=== PATIENT | female | born 1965 | race Caucasian/White ===

== ENCOUNTER 2017-12-30 17:56 | Emergency (ER) | payer OTHER ==
[~2017-12-30] VITALS: Ht 162.6 cm; Wt 98.4 kg
[~2017-12-30 17:56] MED LIST: DOCU-299 PO; FERR324T29 PO; HYDR2TAB46 PO
[2017-12-30 17:59] VITALS: BP 123/64
--- NOTE | 2017-12-30 18:03 | NUR ---
pt taken to lobby at this time to wait for next available bed w/ vss.
--- NOTE | 2017-12-30 19:59 | NUR ---
PT TAKEN TO BED 12
--- NOTE | 2017-12-30 20:09 | NUR ---
52/F CAME IN WITH FAMILY/FRIEND, C/O 12/31 R ARM PAIN/NUMBNESS, X4 DAYS. REPORTS L ARM PAIN/NUMBNESS RESOLVED. PT REPORTS FEELING R ARM "FALLING ASLEEPING." PT DENIES TRAUMA/INJURY. R ARM SKIN INTACT, NO OBVIOUS ABNORMALITY, RADIAL PULSES +2, CAP REFILL <3s, FABRICATION OPERATOR STRENGTH WEAK ON R COMPARED TO L. MILD DISCOLORATIONS NOTED ON BL THIGH AND BL ARMS. PT WENT TO ER 2 DAYS AGO, WAS TOLD DX ALLERGY OF UNKNOWN SOURCE. PT REPORTS TAKING IBUPROFEN WITH NO RELIEF. HX ELEVATED CHOLESTEROL RX SIMVASTATIN, CIPRO, TRIAMCINOLON
[2017-12-30] MEDS ORDERED: DOCUSATE 100 MG/10 ML UDC GT STA (20:48)
[2017-12-30] MEDS ORDERED: HYDROGEN PEROXIDE 3% 240 ML BTL TP ONE (20:50)
[2017-12-30] MEDS ORDERED: GABAPENTIN 300 MG CAP PO ONE ×2 (22:00→22:35)
[2017-12-30] MEDS ORDERED: HYDROcodone/APAP 10/325 MG 1 TAB TAB PO ONE (22:00)
--- NOTE | 2017-12-30 22:29 | NUR ---
PT RESTING IN BED, RR EVEN AND UNLABORED, VSS, REPORTS 12/31, ADMINISTERED NORCO ORDERED. GABAPENTIN UNAVAILABLE FROM [facility], CALLED [facility], AWAITING MED. EMT PLACED R WRIST SPLINT, PT TOLERATED WELL.
[2017-12-30] MEDS ORDERED: GABAPENTIN 100 MG CAP ONE (22:33)
[2017-12-30 22:37] LABS: BASOPHILS # (AUTO) 0.1 K/uL (0.00-0.22); EOSINOPHILS # (AUTO) 0.4 K/uL (0-0.4); EOSINOPHILS % (AUTO) 4.8 % (0.0-4.0); HEMATOCRIT 40.7 % (36-48); HEMOGLOBIN 14.1 g/dL (12.0-16.0); LYMPHOCYTES # (AUTO) 3.3 K/uL (2.5-16.5); LYMPHOCYTES % (AUTO) 38.4 % (20.5-51.1); MEAN CORPUSCULAR HEMOGLOBIN 31 pg (27-31); MEAN CORPUSCULAR HGB CONC 35 g/dL (33-37); MEAN CORPUSCULAR VOLUME 88.4 fL (80-94); MONOCYTES # (AUTO) 0.9 K/uL (0.8-1.0); MONOCYTES % (AUTO) 10.3 % (1.7-9.3); NEUTROPHILS # (AUTO) 3.9 K/uL (1.8-7.7); NEUTROPHILS % (AUTO) 45.5 % (42.2-75.2); PLATELET COUNT (AUTO) 284 K/uL (140-450); RED CELL DISTRIBUTION WIDTH 13.6 % (11.6-13.7); WHITE BLOOD COUNT (AUTO) 8.7 K/uL (4.8-10.8)
--- NOTE | 2017-12-30 22:38 | NUR ---
RECEIVED GABAPENTIN 100MG CAPSULE FROM [employer]PER[employer]OR [employer], MED NOT SCANNING, MED VERIFIED MANUALLY. ADMINISTERED WITH EDUCATION, PT VERBALIZED UNDERSTANING.
[2017-12-30 22:46] LABS: ANION GAP 12.5 (8-16); CARBON DIOXIDE 26.3 mmol/L (21-32); CREATININE 0.6 mg/dL (0.6-1.3); POTASSIUM 3.8 mmol/L (3.5-5.1)
[2017-12-30 23:00] LABS: ALBUMIN 3.7 g/dL (3.4-5.0); TOTAL BILIRUBIN 0.3 mg/dL (0.0-1.0)
--- NOTE | 2017-12-31 00:20 | NUR ---
PT RESTING IN BED, RR EVEN AND UNLABORED, REPORTS 5/10 PAIN, VSS, ALL NEEDS MET.
[2017-12-31 01:05] VITALS: BP 132/71
--- NOTE | 2017-12-31 01:05 | NUR ---
Patient discharged with v/s stable. Written and verbal after care instructions given and explained. Patient alert, oriented and verbalized understanding of instructions. Ambulatory with steady gait. All questions addressed prior to discharge. ID band removed. Patient advised to follow up with PMD. Rx of Gabapentin and [place] given. Patient educated on indication of medication including possible reaction and side effects. Opportunity to ask questions provided and answered.
[2018-01-04 22:24] LABS: ANTI-NUCLEAR ANTIBODY TITER POSITIVE (Negative)
== END 2017-12-31 01:05 | disposition home or self-care (01) ==
LOC: MED 17:56
DX: G56.91 Unspecified mononeuropathy of right upper limb (principal); L52 Erythema nodosum; E78.00 Pure hypercholesterolemia, unspecified; Z88.8 Allergy status to other drugs, medicaments and biological substances
CPT/HCPCS: 36415; 80053; 82607; 82746; 82948; 84443; 85025; 85651; 86060; 99284

== ENCOUNTER 2020-10-29 16:35 | Emergency (ER) | payer OTHER ==
[~2020-10-29] VITALS: Ht 162.6 cm; Wt 86.2 kg
[2020-10-29 17:00] VITALS: BP 155/68
--- NOTE | 2020-10-29 17:00 | NUR ---
Pt ambulated to ER bed 7 with a steady gait.
--- NOTE | 2020-10-29 17:07 | NUR ---
55 Y/O FEMALE C/O BREAST PAIN 11/30 DESCRIBES ACHING RADIATES TO BACK PAIN X2DAYS. PT STATES SHE FELL X1WEEK DENIES LOC, DENIES N/V, DENIES FEVER CHILLS. PT STATES PCP REFERRED HER TO ER FOR EVALUATION. PMH: HLD RX: ATORVASTATIN, AND ASA ALLERGIES: VANCOMYCIN
--- NOTE | 2020-10-29 17:21 | NUR ---
SUNDAY Lal at pt bedside for further evaluation.
--- NOTE | 2020-10-29 17:22 | NUR ---
Female Solder Technician accompanied female patient for breast exam.
[2020-10-29] MEDS ORDERED: KETOROLAC 15 MG/ML VIAL IM ONE (17:35)
[2020-10-29] MEDS ORDERED: MECLIZINE 25 MG TAB PO ONE (17:35)
--- NOTE | 2020-10-29 17:45 | NUR ---
Pt taken to XR via W/C.
--- NOTE | 2020-10-29 17:52 | NUR ---
Pt taken to ER bed 7 via W/C.
[2020-10-29] MEDS ORDERED: NAPR-54 PO (18:19)
[2020-10-29] MEDS ORDERED: METH-1681 PO (18:19)
[2020-10-29 18:48] VITALS: BP 155/68
--- NOTE | 2020-10-29 18:48 | NUR ---
Patient discharged with v/s stable. Written and verbal after care instructions given CONTUSION and explained. Patient alert, oriented and verbalized understanding of instructions. Ambulatory with steady gait. All questions addressed prior to discharge. ID band removed. Patient advised to follow up with PMD. Rx of ROBAXIN 500G PO TID PRN PAIN, AND NAPROXEN 500MG PO BID PRN PAIN given. Patient educated on indication of medication including possible reaction and side effects. Opportunity to ask questions provided and answered.
== END 2020-10-29 18:48 | disposition home or self-care (01) ==
LOC: MED 16:35
DX: S20.212A Contusion of left front wall of thorax, initial encounter (principal); Z88.8 Allergy status to other drugs, medicaments and biological substances; Z98.890 Other specified postprocedural states; Z79.899 Other long term (current) drug therapy; W19.XXXA Unspecified fall, initial encounter; Y93.89 Activity, other specified; Y92.89 Other specified places as the place of occurrence of the external cause; Y99.8 Other external cause status
CPT/HCPCS: 71111; 96372; 99283; J1885; J8597

== ENCOUNTER 2022-11-17 15:21 | Emergency (ER) | payer OTHER ==
[~2022-11-17] VITALS: Ht 160 cm; Wt 76.7 kg
[~2022-11-17 15:21] MED LIST changes: +KETOROLAC 30 MG/ML VIAL ONE; +METH-1681 PO; +NAPR-54 PO; +ONDANSETRON 4 MG/2 ML VIAL ONE; +PROPOFOL 200 MG/20 ML VIAL IV ONE; +SEVOFLURANE 250 ML BTL INH ONE; +SUCCINYLCHOLINE CHLORIDE 200 MG/10 ML VIAL IVP ONE; +fentaNYL citrate 0.05 MG/ML VIAL ONE
[2022-11-17 15:53] VITALS: BP 119/67; PULSE 72; RESP 18; TEMP 98; O2SAT 100
[2022-11-17] MEDS ORDERED: KETOROLAC 30 MG/ML VIAL IM ONE (16:10)
[2022-11-17] MEDS ORDERED: ACETAMINOPHEN EXTRA STRENGTH 500 MG TAB PO ONE (16:10)
--- NOTE | 2022-11-17 16:10 | NUR ---
Medicated as ordered. Pt. with no acute distress. Amb. to bed 10 with diff. NO resp. difficutly. PT.'s significant other sitting with pt.
--- NOTE | 2022-11-17 17:00 | NUR ---
Pt. states feeling better with less pain. No acute distress. NO respitary diff.
[2022-11-17] MEDS ORDERED: IBUP-2213 PO (17:07)
[2022-11-17] MEDS ORDERED: LID5T TP (17:07)
--- NOTE | 2022-11-17 17:22 | NUR ---
Patient discharged with v/s stable. Written and verbal after care instructions given and explained. Patient verbalized understanding. Ambulatory with steady gait. All questions addressed prior to discharge. Advised to follow up with PMD. States feeling better and that "pain meds worked." D/C home with
[2022-11-17 17:25] VITALS: BP 145/78; PULSE 87; RESP 16; O2SAT 100
== END 2022-11-17 17:25 | disposition home or self-care (01) ==
LOC: MED 15:21
DX: S20.211A Contusion of right front wall of thorax, initial encounter (principal); R07.89 Other chest pain; W18.30XA Fall on same level, unspecified, initial encounter; Y93.89 Activity, other specified; Y92.89 Other specified places as the place of occurrence of the external cause; Y99.8 Other external cause status
CPT/HCPCS: 71101; 96372; 99283; J1885; J0330; J2405; J2704; J3010

== ENCOUNTER 2023-07-04 16:11 | Emergency (ER) | payer OTHER ==
[~2023-07-04] VITALS: Ht 167.6 cm; Wt 77.3 kg
[~2023-07-04 16:11] MED LIST changes: +IBUP-2213 PO; -KETOROLAC 30 MG/ML VIAL ONE; +LID5T TP; -ONDANSETRON 4 MG/2 ML VIAL ONE; -PROPOFOL 200 MG/20 ML VIAL IV ONE; -SEVOFLURANE 250 ML BTL INH ONE; -SUCCINYLCHOLINE CHLORIDE 200 MG/10 ML VIAL IVP ONE; -fentaNYL citrate 0.05 MG/ML VIAL ONE
[2023-07-04 16:24] VITALS: BP 125/72; PULSE 66; RESP 18; TEMP 98; O2SAT 95
[2023-07-04 17:43] LABS: BASOPHILS % (AUTO) 0.5 % (0.0-2.0); EOSINOPHILS # (AUTO) 0.1 K/uL (0-0.4); EOSINOPHILS % (AUTO) 1.7 % (0.0-4.0); HEMOGLOBIN 14.2 g/dL (12.0-16.0); LYMPHOCYTES # (AUTO) 2.9 K/uL (2.5-16.5); LYMPHOCYTES % (AUTO) 32.6 % (20.5-51.1); MEAN CORPUSCULAR HEMOGLOBIN 32 pg (27-31); MEAN CORPUSCULAR HGB CONC 36 g/dL (33-37); MEAN CORPUSCULAR VOLUME 88.6 fL (80-94); MONOCYTES # (AUTO) 0.4 K/uL (0.8-1.0); MONOCYTES % (AUTO) 4.5 % (1.7-9.3); NEUTROPHILS # (AUTO) 5.3 K/uL (1.8-7.7); NEUTROPHILS % (AUTO) 60.7 % (42.2-75.2); PLATELET COUNT (AUTO) 216 K/uL (140-450); RED BLOOD CELL COUNT(AUTO) 4.51 MIL/uL (4.20-5.40); RED CELL DISTRIBUTION WIDTH 13.3 % (11.6-13.7); WHITE BLOOD COUNT (AUTO) 8.8 K/uL (4.8-10.8)
[2023-07-04 18:20] LABS: CREATININE 0.6 mg/dL (0.6-1.3)
[2023-07-04 18:27] LABS: ALBUMIN 3.9 g/dL (3.4-5.0); BILIRUBIN,DIRECT 0.1 mg/dL (0.0-0.3); TOTAL BILIRUBIN 0.3 mg/dL (0.0-1.0); TOTAL PROTEIN, SERUM 8.8 g/dL (6.4-8.2)
[2023-07-04 18:31] LABS: INR 1.47 (0.8-1.2); PARTIAL THROMBOPLASTIN TIME 27.2 secs (22-35.6); PROTHROMBIN TIME 15.1 secs (10.8-13.4)
[2023-07-04 18:47] LABS: ANION GAP 13.7 (8-16); CARBON DIOXIDE 27.8 mmol/L (21-32); POTASSIUM 3.5 mmol/L (3.5-5.1)
[2023-07-04 19:18] VITALS: BP 122/49; PULSE 64; RESP 18; TEMP 98; O2SAT 95
== END 2023-07-04 19:18 | disposition home or self-care (01) ==
LOC: MED 16:11
DX: N93.9 Abnormal uterine and vaginal bleeding, unspecified (principal); Z79.899 Other long term (current) drug therapy
CPT/HCPCS: 36415; 76830; 80048; 80076; 85025; 85610; 85730; 86886; 86900; 86901; 99284; Q0092